=== PATIENT | female | born 1970 | race Caucasian/White ===

== ENCOUNTER 2021-10-25 05:18 | Day surgery (SDC) | payer OTHER, SELFPAY ==
[~2021-10-25] VITALS: Ht 165.1 cm; Wt 90.7 kg
[2021-10-25] MEDS ORDERED: diphenhydrAMINE 50 MG/ML VIAL ONE (07:18)
[2021-10-25] MEDS ORDERED: LIDOCAINE 2% 100 MG/5 ML UJET TP ONE (07:19)
[2021-10-25] MEDS ORDERED: fentaNYL citrate 0.05 MG/ML VIAL ONE (07:19)
[2021-10-25] MEDS ORDERED: MIDAZOLAM 5 MG/5 ML VIAL ONE (07:19)
[2021-10-25] MEDS ORDERED: fentaNYL citrate 0.05 MG/ML VIAL IVP ONE (12:25)
[2021-10-25] MEDS ORDERED: MIDAZOLAM 2 MG/2 ML VIAL IVP ONE (12:25)
== END 2021-10-25 09:07 | disposition home or self-care (01) ==
LOC: MMU 05:18 → MOR 05:18
PROVIDERS: ATTEND Internal Medicine Gastroenterology
DX: Z12.11 Encounter for screening for malignant neoplasm of colon (principal); K63.5 Polyp of colon; K57.30 Diverticulosis of large intestine without perforation or abscess without bleeding; E66.8 Other obesity; I10 Essential (primary) hypertension; Z98.84 Bariatric surgery status; Z87.891 Personal history of nicotine dependence; Z79.899 Other long term (current) drug therapy; Z20.822 Contact with and (suspected) exposure to COVID-19
CPT/HCPCS: 45385; 87426; J2250; J3010; 88305; J1200